=== PATIENT | male | born 1975 | race Caucasian/White ===

== ENCOUNTER 2018-11-24 22:00 | Emergency (ER) | payer MEDICAID ==
--- NOTE | 2018-11-24 23:14 | RAD ---
Exam: AP pelvis one view: HISTORY: Injury COMPARISON: None FINDINGS: No evidence for fracture, dislocation, or other significant acute osseous abnormality. IMPRESSION: No significant acute process.
--- NOTE | 2018-11-24 23:15 | RAD ---
EXAM: Lumbar spine 2 views: HISTORY: Injury COMPARISON: None FINDINGS: No evidence for acute fracture or dislocation involving the visualized spine. There are disc osteophytosis and facet arthrosis changes. No evidence for malalignment. No evidence for a bone lesion. IMPRESSION: Spondylosis. No significant acute process.
[2018-11-24] MEDS ORDERED: traMADol HCl 50 MG TAB ONE (23:24)
== END 2018-11-24 23:31 ==
LOC: MADERS 22:00
DX: S30.0XXA Contusion of lower back and pelvis, initial encounter (principal); E03.9 Hypothyroidism, unspecified; K21.9 Gastro-esophageal reflux disease without esophagitis; F17.200 Nicotine dependence, unspecified, uncomplicated; Z79.899 Other long term (current) drug therapy; Z79.01 Long term (current) use of anticoagulants; W01.0XXA Fall on same level from slipping, tripping and stumbling without subsequent striking against object, initial encounter
CPT/HCPCS: 72100; 72170